=== PATIENT | female | born 1990 | race Hispanic/Latino ===

== ENCOUNTER 2024-03-02 19:44 | Emergency (ER) | payer OTHER, SELFPAY ==
[2024-03-02 20:00] VITALS: BP 131/82; PULSE 60; RESP 16; TEMP 36.1; O2SAT 97; BMI 33.3
--- NOTE | 2024-03-02 20:06 | DI.RAD.S_ITS ---
PROCEDURE: XR HAND RT MIN 3V INDICATIONS: injury to Right pinky TECHNIQUE: 3 views of the hand(s) acquired. COMPARISON: None. FINDINGS: Bones: Subtle cortical irregularity involving dorsal and ulnar aspect of 5th distal phalangeal base, a subtle incomplete fracture cannot be excluded. No other fracture or dislocation. Carpal bones are normally aligned. No suspicious bony lesions. Soft tissues: No suspicious soft tissue calcifications. IMPRESSION: Finding may represent subtle incomplete fracture or nondisplaced fracture involving dorsal and ulnar aspect of 5th distal phalangeal base suggest clinical correlation for focal pain in this area. No other fracture or dislocation. Dictated by: Bobby Campo M.D. on 03/02/2024 at 20:51 Approved by: Bobby Campo M.D. on 03/02/2024 at 20:51
[2024-03-02] MEDS: ACETAMINOPHEN 325 MG TABLET 975 MG PO (23:03)
[2024-03-02 23:17] VITALS: BP 149/79; PULSE 58; O2SAT 100
[2024-03-03] VITALS (7 sets, daily range): BP systolic 122–126; BP diastolic 71–78; PULSE 54–60; RESP 18; O2SAT 98–100
--- NOTE | 2024-03-03 02:56 | ED_ITS ---
HPI - Extremity Injury (Upper) General Chief Complaint: Extremity Injury, Upper Stated Complaint: Right pinky finger pain/injury Time Seen by Provider: 03/03/24 02:19 Source: patient Mode of arrival: Ambulatory History of Present Illness HPI narrative: 33-year-old female works at [employer], this afternoon caught right pinky finger on some kind of wrap caught up in device that pulled her forward, pulling on her right pinky finger, also with some discomfort to her right hand and right wrist. No other injuries. Specifically she denied any pain to her head, face, neck, upper back, lower back, left upper extremity, legs. No skin laceration to the affected finger Related Data Allergies Allergy/AdvReac Type Severity Reaction Status Date / Time No Known Drug Allergies Allergy Verified 03/02/24 20:00 Patient History Social History Smoking Status: Never smoker Smoking Status: Never smoker Exam Narrative Exam Narrative: GENERAL: Well-developed patient, in mild distress. HEAD: Atraumatic. Normocephalic. EYES: Pupils equal round and reactive. Extraocular motions intact. No scleral icterus. No injection or drainage. ENT: Nose without bleeding, purulent drainage. Throat without erythema, tonsillar hypertrophy or exudate. Airway patent. NECK: Trachea midline. Non tender CARDIOVASCULAR: Regular rate and rhythm without murmurs, gallops, or rubs. RESPIRATORY: Clear to auscultation. Breath sounds equal bilaterally. No wheezes, rales, or rhonchi. GASTROINTESTINAL: Abdomen soft, non-tender, nondistended. EXTREMITIES: No gross hand deformity or finger deformity. No significant tenderness to right wrist, no deformity, no imaging indicated. Some tenderness to the proximal and mid phalanx right pinky finger, without gross deformity. No lacerations. No subungual hematoma. No edema to dorsal or volar hand. Some limited range of motion of the right pinky at the MCP and IP these due to discomfort. BACK: Nontender without deformity or crepitance. No flank tenderness. NEURO: AOx3. Motor functions grossly nonfocal SKIN: No rash or erythema of visible areas Initial Vital Signs Initial Vital Signs: Vital Signs Temperature 96.9 F L 03/02/24 20:00 Pulse Rate 60 03/02/24 20:00 Respiratory Rate 16 03/02/24 20:00 Blood Pressure 131/82 03/02/24 20:00 Pulse Oximetry 97 03/02/24 20:00 Oxygen Delivery Method Room Air 03/02/24 20:00 Course Orders Ordered: Discontinued Medications Acetaminophen (Acetaminophen 325 Mg Tablet) 975 mg PO NOW ONE Stop: 03/02/24 22:58 Last Admin: 03/02/24 23:03 Dose: 975 mg Documented By: SUSAN Ibuprofen (Ibuprofen 400 Mg Tablet) 400 mg PO NOW ONE Stop: 03/03/24 03:19 Last Admin: 03/03/24 03:30 Dose: 400 mg Documented By: POLO Vital Signs Vital signs: Vital Signs - 8 hr 03/02/24 23:17 03/03/24 01:17 03/03/24 01:18 Pulse Rate 58 L 56 L Respiratory Rate 18 Blood Pressure 149/79 H 126/78 Pulse Oximetry 100 100 Oxygen Delivery Method Room Air 03/03/24 01:30 03/03/24 01:30 03/03/24 02:00 Pulse Rate 55 L 60 Respiratory Rate Blood Pressure 122/71 Pulse Oximetry 98 100 Oxygen Delivery Method 03/03/24 02:30 03/03/24 03:00 03/03/24 03:30 Pulse Rate 54 L 54 L 55 L Respiratory Rate 18 Blood Pressure 124/72 Pulse Oximetry 100 100 100 Oxygen Delivery Method MDM - Extremity Injury (Upper) Imaging Data Extremity x-ray #1: Radiologist's Impression: [place] [address] XRay Report Signed Patient: Pepper Voss MR#: [id number] : 1990 Acct:[id number] Age/Sex: 33 / F Date of Service: 03/02/24 Loc: ED Accession Number: [id number] Procedure: XR hand RT min 3V Ordering Provider: Elliott Hummel MD PROCEDURE: XR HAND RT MIN 3V INDICATIONS: injury to Right pinky TECHNIQUE: 3 views of the hand(s) acquired. COMPARISON: None. FINDINGS: Bones: Subtle cortical irregularity involving dorsal and ulnar aspect of 5th distal phalangeal base, a subtle incomplete fracture cannot be excluded. No other fracture or dislocation. Carpal bones are normally aligned. No suspicious bony lesions. Soft tissues: No suspicious soft tissue calcifications. IMPRESSION: Finding may represent subtle incomplete fracture or nondisplaced fracture involving dorsal and ulnar aspect of 5th distal phalangeal base suggest clinical correlation for focal pain in this area. No other fracture or dislocation. Dictated by: Bobby Campo M.D. on 03/02/2024 at 20:51 Approved by: Bobby Campo M.D. on 03/02/2024 at 20:51 [facility] Narrative Medical decision making narrative: 33-year-old female was at work got right pinky finger caught in unwinding machine at [employer] in [place], yanked her right pinky finger forward. Complains of pain at the finger, also some discomfort at the wrist. No other injuries. Denies specifically pain to head, neck, upper back, lower back, chest, abdomen, lower extremities. Left upper extremity x-ray ordered from triage. X-ray right hand impressions: ?Findings may represent subtle incomplete fracture nondisplaced fracture involving the dorsal and ulnar aspect of the 5th distal phalangeal base suggest clinical correlation for focal pain in this area. No other fracture or dislocation. See radiology report Ulnar gutter splint right hand to wrist/forearm to immobilize the wrist as well as the symptomatic left 5th finger. Follow up with Orthopedic surgery advised, no use of right hand advised until cleared by Orthopedic surgery Dr. Zarco. [employer] or claim injury form filled out, claim number [id number] Discharge Plan Departure Patient Disposition: Home Clinical Impression: Fracture of finger of right hand Instructions: DI for Fracture Activity Restrictions/Additional Instructions: Right hand pinky finger caught in work device at [employer] this afternoon, with pain to the right pinky, also some discomfort in the right hand and wrist. No tenderness to non deformed right wrist. Some tenderness base mid 5th right finger. No gross deformity. X-ray suspicious for possible nondisplaced subtle fracture. We will splint in case of fracture. No use of right hand until cleared by Orthopedic surgery advised. Contact information provided for local orthopedic surgery. Call their office later today during open hours for close follow up appointment. Take Tylenol and or Motrin for hand pain. Worse splint to protect the finger. In follow up if there is no tender ness then perhaps there is likely no fracture. If there is persistent tenderness then fracture is more likely and additional splinting and healing time would be needed. [employer] claim form filled out, claim number [id number] Referrals: Nadine Zarco MD [Physician] - Stand Alone Forms: Patient Portal/API/Survey
[2024-03-03] MEDS: IBUPROFEN 400 MG TABLET PO (03:30)
== END 2024-03-03 03:59 | disposition home or self-care (01) ==
PROVIDERS: Emergency Provider Emergency Medicine
DX: S62.666A Nondisplaced fracture of distal phalanx of right little finger, initial encounter for closed fracture (principal); X50.9XXA Other and unspecified overexertion or strenuous movements or postures, initial encounter; Y99.0 Civilian activity done for income or pay
CPT/HCPCS: 29125; 73130; 99283